=== PATIENT | male | born 2000 ===

== ENCOUNTER 2023-01-03 20:46 | Emergency (ER) | payer MEDICAID, OTHER ==
[~2023-01-03] VITALS: Ht 165.1 cm; Wt 74.2 kg
[2023-01-03 20:50] VITALS: BP 145/80
[2023-01-03] MEDS ORDERED: ERY05OO OP (22:41)
== END 2023-01-03 22:53 | disposition home or self-care (01) ==
LOC: ER 20:46
DX: S05.02XA Injury of conjunctiva and corneal abrasion without foreign body, left eye, initial encounter (principal); X58.XXXA Exposure to other specified factors, initial encounter; Y93.G3 Activity, cooking and baking; Y92.89 Other specified places as the place of occurrence of the external cause; Y99.8 Other external cause status